=== PATIENT | male | born 1945 | race Hispanic/Latino ===

== ENCOUNTER → 2018-06-12 | Outpatient (CLI) | payer OTHER ==
[~2018-06-12] VITALS: Ht 175.3 cm; Wt 96.2 kg
[~2018-06-12] MED LIST: REGADENOSON 0.4 MG/5 ML PF SYG IVP SCH
== END | disposition home or self-care (01) ==
LOC: SHCH 08:09
PROVIDERS: ATTEND Internal Medicine Cardiovascular Disease
DX: I42.8 Other cardiomyopathies (principal); I48.2 Chronic atrial fibrillation
CPT/HCPCS: 78452; 93017; 96374; A9500 ×2; J2785

== ENCOUNTER 2018-08-01 07:36 | Day surgery (SDC) | payer OTHER ==
[2018-07-30 15:30] LABS: BASOPHILS % (AUTO) 0.6 % (0.0-5.0); EOSINOPHILS % (AUTO) 2.4 % (0.0-8.0); LYMPHOCYTES % (AUTO) 33.2 % (21.0-51.0); MEAN CORPUSCULAR HGB CONC 34.6 g/dL (32.0-36.0); MEAN CORPUSCULAR VOLUME 92.3 fL (79-99); MONOCYTES % (AUTO) 5.5 % (3.0-13.0); NEUTROPHILS % (AUTO) 58.3 % (40.0-77.0); PLATELET COUNT (AUTO) 193 K/uL (130-400); RED BLOOD CELL COUNT(AUTO) 4.44 MIL/uL (4.50-6.20); RED CELL DISTRIBUTION WIDTH 13.7 % (11.0-15.5); WHITE BLOOD COUNT (AUTO) 10.2 K/uL (4.8-10.8)
[2018-07-30 15:31] VITALS: BP 138/65
[2018-07-30 15:39] LABS: CREATININE 1.5 mg/dL (0.5-1.5); POTASSIUM 3.8 mmol/L (3.5-5.1)
[2018-07-30 15:40] LABS: APPEARANCE,URINE Clear (CLEAR); BILIRUBIN,URINE Negative (NEGATIVE); COLOR,URINE Yellow (YELLOW); GLUCOSE, URINE (UA) Negative (NEGATIVE); KETONES,URINE Trace mg/dL (NEGATIVE); LEUKOCYTE ESTERASE ,URINE Moderate (NEGATIVE); NITRATE,URINE Positive (NEGATIVE); OCCULT BLOOD,URINE Trace (NEGATIVE); PH,URINE 5.5 (5.0-8.0); PROTEIN,URINE Negative (NEGATIVE)
[2018-07-30 15:43] LABS: PARTIAL THROMBOPLASTIN TIME 32.5 SEC (26.3-35.5)
[2018-07-30 16:02] LABS: BACTERIA,URINE Moderate /HPF (None Seen); INR 1.09 (0.85-1.15); PROTHROMBIN TIME 11.4 SEC (9.6-11.6)
[2018-07-30 16:03] LABS: SQUAMOUS EPITHELIAL CELL,UR Rare /HPF (0-2)
--- NOTE | 2018-07-31 11:07 | NUR ---
TOBIN FAXED AND REPORTED ABNORMAL BUN/ CREA/ UA TO DR. ROMARIO BRANTLEY. SHE WILL INFORM Effie COVINGTON NP.
--- NOTE | 2018-07-31 13:47 | NUR ---
LABS PER Effie COVINGTON NP PT TO MAINTAIN HYDRATED TODAY AND ENCURAGE FLUIDS. REPEAT BMI IN AM AND COLLECT UA FOR C/S. INFORM DR. DOSS OF NEW BMP RESULTS IN AM.
--- NOTE | 2018-07-31 13:53 | NUR ---
FLUIDS CALLED AND SPOKE TO PTS IN REGARDS TO HYDRATING TODAY AND NOTHING TO EAT OR DRINK PAST MIDNIGHT TONIGHT. VERBALIZED UNDERSTANDING.
[2018-08-01] VITALS (9 sets, daily range): BP systolic 118–138; BP diastolic 60–74
[~2018-08-01] VITALS: Ht 177.8 cm; Wt 96.6 kg
--- NOTE | 2018-08-01 06:45 | NUR ---
ORDERS ROCÍO COVINGTON NP CALLED TO GIVE ORDERS FROM DR. DOSS. PER ROCÍO, HAVE PT COME IN EARLIER AT ABOUT 0800 IF POSSIBLE. UPON ARRIVAL, START NS AT 100 ML/HR UNTIL PT GOES TO PROCEDURE. Addendum: 08/01/18 at 0715 by OSMIN DOSS RN RN PT WAS CALLED AND STATED HE IS ABLE TO COME IN AT 0800.
[~2018-08-01 07:36] MED LIST changes: +AMLO10TA7 PO; +BENA40TA9 PO; +BUDE10.2 IH; +FINA5TAB41 PO; +GLIP10TA9 PO; +HYDR25TA PO; +METF-446 PO; +OMEG-148 PO; -REGADENOSON 0.4 MG/5 ML PF SYG IVP SCH; +RIVA20TA PO; +SIMV20TA6 PO; +SODIUM CHLORIDE 0.9% 500ML 500 ML IV SCH; +TAMS-1 PO; +VITAMIN B12 PO
[2018-08-01] MEDS ORDERED: SODIUM CHLORIDE 0.9% 1000ML 1,000 ML IV ONE (08:22)
[2018-08-01 08:25] LABS: CREATININE 1.2 mg/dL (0.5-1.5); POTASSIUM 3.8 mmol/L (3.5-5.1)
[2018-08-01] MEDS ORDERED: BIVALIRUDIN 250 MG/VIAL IV ONE (12:42)
[2018-08-01] MEDS ORDERED: LIDOCAINE HCL 2% 20ML ONE (12:42)
[2018-08-01] MEDS ORDERED: NITROGLYCERIN 5 MG/ML 10 ML VIAL IV ONE (12:42)
[2018-08-01] MEDS ORDERED: IOHEXOL 350 MG/ML 100ML INFUS..BTL IV ONE (12:43)
[2018-08-01] MEDS ORDERED: IOHEXOL-350 50ML VIAL IV ONE (12:43)
[2018-08-01] MEDS ORDERED: MIDAZOLAM HCL 1 MG/ML 2ML VIAL ONE (13:09)
[2018-08-01] MEDS ORDERED: SODIUM CHLORIDE 0.9% 1000ML 1,000 ML IV SCH (13:41)
[2018-08-01] MEDS ORDERED: GLUCAGON 1MG KIT 1 MG ML IM PRN (13:45)
[2018-08-01] MEDS ORDERED: DEXTROSE 50%-WATER 50 ML DISP.SYRIN IV PRN (13:45)
[2018-08-01] MEDS ORDERED: INSULIN HUMULIN R 100 UNIT/ML 3ML SQ SCH (16:30)
--- NOTE | 2018-08-01 17:30 | NUR ---
DC DC INSTRUCTIONS GIVEN TO PT / PT SPOUSE , INSTRUCTED TO F/U WITH DR. DOSS, TO RESUME XARELTO, TO HOLD METFORMIN FOR 48 HOURS. VERBALIZED UNDERSTANDING. NO PIV NOTED. SITE ASYMPTOMATIC, RIGHT GROIN DRESSING DRY AND INTACT, PT AWAKE AND ALERT IN BED, NO DISTRESS NOTED. DENIES ANY PAIN OR DISCOMFORTS. PT WILL GET DRESS THEN GO HOME ONCE READY
--- NOTE | 2018-08-01 17:42 | NUR ---
DC PT DC HOME VIA WC, NO DISTRESS NOTED. DENIED ANY PAIN OR DISCOMFORTS. ACCOMPANIED BY SPOUSE
== END 2018-08-01 17:42 | disposition home or self-care (01) ==
LOC: DAH 07:36
PROVIDERS: ATTEND Internal Medicine Cardiovascular Disease
DX: I25.10 Atherosclerotic heart disease of native coronary artery without angina pectoris (principal); Z79.01 Long term (current) use of anticoagulants; I48.2 Chronic atrial fibrillation; Z86.73 Personal history of transient ischemic attack (TIA), and cerebral infarction without residual deficits; I10 Essential (primary) hypertension; Z68.31 Body mass index [BMI] 31.0-31.9, adult; E78.5 Hyperlipidemia, unspecified; N40.0 Benign prostatic hyperplasia without lower urinary tract symptoms; J44.9 Chronic obstructive pulmonary disease, unspecified; Z87.891 Personal history of nicotine dependence; E11.59 Type 2 diabetes mellitus with other circulatory complications; I25.5 Ischemic cardiomyopathy; I47.2 Ventricular tachycardia
CPT/HCPCS: 36415 ×2; 71045; 80048 ×2; 81001; 82948 ×3; 85025; 85610; 85730; 87077; 87088; 87186; 93005; 93458; A4606; C1760; C1894; J1644; J2250; J3490 ×2; J7030; Q9965; Q9967 ×2; 99156; 99157; J0583

== ENCOUNTER 2019-06-12 07:28 | Day surgery (SDC) | payer OTHER ==
[~2019-06-12] VITALS: Ht 175.3 cm; Wt 99.8 kg
[~2019-06-12 07:28] MED LIST changes: +APIX5TAB PO; -BUDE10.2 IH; +FLUT1DIS IH; -HYDR25TA PO; +IRON-23 PO; -RIVA20TA PO; +SIMV-43 PO; -SIMV20TA6 PO; +SODIUM CHLORIDE 0.9% 1000ML 1,000 ML IV ONE; -SODIUM CHLORIDE 0.9% 500ML 500 ML IV SCH
[2019-06-12] MEDS ORDERED: PROPOFOL 10 MG/ML 20ML VIAL IV ONE ×2 (09:25)
[2019-06-12] MEDS ORDERED: LIDOCAINE HCL 1% 20 ML VIAL ONE (09:26)
[2019-06-12] MEDS ORDERED: GLYCOPYRROLATE 0.2 MG/ML 5 ML VIAL ONE (09:56)
[2019-06-12] MEDS ORDERED: EPHEDRINE SULFATE 50 MG/ML AMPULE ONE (09:58)
[2019-06-12 10:23] VITALS: BP 143/66
[2019-06-12 10:28] VITALS: BP 130/68
[2019-06-12 10:33] VITALS: BP 137/80
[2019-06-12 10:38] VITALS: BP 135/74
== END 2019-06-12 10:52 | disposition home or self-care (01) ==
LOC: DAH 07:28 → ENDO 07:28
PROVIDERS: ATTEND Internal Medicine Gastroenterology
DX: D50.9 Iron deficiency anemia, unspecified (principal); K63.5 Polyp of colon; K57.30 Diverticulosis of large intestine without perforation or abscess without bleeding; K29.70 Gastritis, unspecified, without bleeding; K22.8 Other specified diseases of esophagus; K55.21 Angiodysplasia of colon with hemorrhage; J45.909 Unspecified asthma, uncomplicated; F17.200 Nicotine dependence, unspecified, uncomplicated; I10 Essential (primary) hypertension; I25.10 Atherosclerotic heart disease of native coronary artery without angina pectoris; E78.5 Hyperlipidemia, unspecified; E11.9 Type 2 diabetes mellitus without complications; I48.91 Unspecified atrial fibrillation; I25.2 Old myocardial infarction; Z86.010 Personal history of colon polyps; Z86.73 Personal history of transient ischemic attack (TIA), and cerebral infarction without residual deficits
CPT/HCPCS: 43239; 45380; 45382; 45385; 82948 ×2; 93005; A4215 ×2; A4221 ×2; A4222 ×2; A4223 ×2; A4606 ×2; A4620 ×2; A4649; A4663 ×2; J2704 ×2; J3490 ×2; J7030 ×2; 45388

== ENCOUNTER 2021-06-15 22:40 | Observation (INO) | payer OTHER ==
[~2021-06-15] VITALS: Ht 175.3 cm; Wt 95.9 kg
[~2021-06-15 22:40] MED LIST changes: +AMLO-258 PO; -AMLO10TA7 PO; -BENA40TA9 PO; +BENA40TA92 PO; +BENZ-39 PO; +CEPH500T PO; -SODIUM CHLORIDE 0.9% 1000ML 1,000 ML IV ONE
[2021-06-15 23:42] LABS: BASOPHILS % (AUTO) 0.7 % (0.0-5.0); EOSINOPHILS % (AUTO) 8.7 % (0.0-8.0); HEMATOCRIT 28.5 % (42-54); LYMPHOCYTES % (AUTO) 26.5 % (21.0-51.0); MEAN CORPUSCULAR HGB CONC 29.5 g/dL (32.0-36.0); MEAN CORPUSCULAR VOLUME 77.9 fL (79-99); MONOCYTES % (AUTO) 7.5 % (3.0-13.0); NEUTROPHILS % (AUTO) 56.3 % (40.0-77.0); PLATELET COUNT (AUTO) 221 K/uL (130-400); RED BLOOD CELL COUNT(AUTO) 3.66 MIL/uL (4.50-6.20); RED CELL DISTRIBUTION WIDTH 18.5 % (11.0-15.5); WHITE BLOOD COUNT (AUTO) 9.8 K/uL (4.8-10.8)
[2021-06-15 23:57] LABS: CREATININE 1.1 mg/dL (0.5-1.5); INR 1.07 (0.85-1.15); POTASSIUM 3.5 mmol/L (3.5-5.1); PROTHROMBIN TIME 11.6 SEC (9.6-11.6)
[2021-06-15 23:58] LABS: PARTIAL THROMBOPLASTIN TIME 28.4 SEC (26.3-35.5)
[2021-06-16 00:01] LABS: ALBUMIN 3.1 g/dL (3.5-5.0); BILIRUBIN,TOTAL 0.2 mg/dL (0.2-1.0); MAGNESIUM 1.8 mg/dL (1.80-2.40); TOTAL PROTEIN, SERUM 5.8 g/dL (6.0-8.3)
[2021-06-16 00:08] LABS: B-TYPE NATRIURETIC PEPTIDE 663 pg/mL (0-100)
[2021-06-16] MEDS ORDERED: ACETAMINOPHEN 325 MG TAB PO PRN (01:00)
[2021-06-16] MEDS: CEFTRIAXONE 1G VIAL IV SCH (01:29)
[2021-06-16] MEDS: DOXYCYCLINE 100MG+NS 250ML 250 ML IV SCH ×2 (01:30→13:45)
[2021-06-16] MEDS ORDERED: HYDROCODONE/ACETAMINOPHEN 5/325 MG TAB PO PRN (02:00)
[2021-06-16] MEDS ORDERED: ALBUTEROL INHALER 90MCG/INH IH PRN (02:00)
[2021-06-16] MEDS ORDERED: PANT40GR PO (02:26)
[2021-06-16 03:57] LABS: APPEARANCE,URINE CLEAR (CLEAR); BILIRUBIN,URINE NEGATIVE (NEGATIVE); COLOR,URINE YELLOW (YELLOW); GLUCOSE, URINE (UA) NEGATIVE (NEGATIVE); KETONES,URINE NEGATIVE (NEGATIVE); LEUKOCYTE ESTERASE ,URINE NEGATIVE (NEGATIVE); NITRATE,URINE NEGATIVE (NEGATIVE); OCCULT BLOOD,URINE NEGATIVE (NEGATIVE); PROTEIN,URINE NEGATIVE (NEGATIVE); UROBILINOGEN,URINE 0.2 mg/dL (0.2-1.0)
[2021-06-16] MEDS ORDERED: LIDOCAINE HCL 2% VISCOUS 15 ML UDCUP PO ONE (04:00)
[2021-06-16] MEDS ORDERED: MAG/ALUM/SIMETH 30 ML UDCUP PO ONE (04:00)
[2021-06-16 04:56] VITALS: BP 119/61
[2021-06-16] MEDS: INSULIN HUMULIN R 100 UNIT/ML 3ML SQ SCH ×4 (07:30→20:13)
[2021-06-16 08:00] VITALS: BP 126/62
[2021-06-16] MEDS ORDERED: BENZONATATE 100 MG CAPSULE PO SCH (09:00)
[2021-06-16] MEDS: FAMOTIDINE 20MG TAB PO SCH (10:28)
[2021-06-16 11:37] VITALS: BP 117/62
[2021-06-16 16:00] VITALS: BP 112/55
[2021-06-16 19:48] VITALS: BP 123/65
[2021-06-16] MEDS ORDERED: BENZONATATE 100 MG CAPSULE PO ONE (20:27)
[2021-06-16] MEDS: BENZONATATE 100 MG CAPSULE PO SCH (21:12)
[2021-06-16] MEDS ORDERED: OXYMETAZOLINE HCL SPRAY 15 ML BOTTLE EN PRN (22:00)
[2021-06-16 23:33] VITALS: BP 114/70
[2021-06-16] MEDS ORDERED: IOHEXOL 350 MG/ML 100ML INFUS..BTL IV ONE (23:43)
[2021-06-16] MEDS ORDERED: SODIUM CHLORIDE 3% FOR INHALATION 4 ML/AMP VIAL.NEB IH ONE (23:53)
[2021-06-17] MEDS: IPRATROPIUM/ALBUTEROL SULFATE 3 ML SOLUTION IH SCH ×3 (00:11→11:10)
[2021-06-17] MEDS: CEFTRIAXONE 1G VIAL IV SCH (01:01)
[2021-06-17] MEDS: DOXYCYCLINE 100MG+NS 250ML 250 ML IV SCH ×2 (01:02→11:44)
[2021-06-17 04:13] LABS: BASOPHILS % (AUTO) 0.7 % (0.0-5.0); EOSINOPHILS % (AUTO) 7.7 % (0.0-8.0); HEMATOCRIT 29.1 % (42-54); LYMPHOCYTES % (AUTO) 28.2 % (21.0-51.0); MEAN CORPUSCULAR HEMOGLOBIN 22.6 pg (27.0-33.0); MEAN CORPUSCULAR HGB CONC 29.6 g/dL (32.0-36.0); MEAN CORPUSCULAR VOLUME 76.4 fL (79-99); NEUTROPHILS % (AUTO) 57.1 % (40.0-77.0); PLATELET COUNT (AUTO) 238 K/uL (130-400); RED BLOOD CELL COUNT(AUTO) 3.81 MIL/uL (4.50-6.20); RED CELL DISTRIBUTION WIDTH 18.4 % (11.0-15.5); WHITE BLOOD COUNT (AUTO) 9.2 K/uL (4.8-10.8)
[2021-06-17 04:16] LABS: RETICULOCYTE % (AUTO) 1.5 % (0.42-2.23)
[2021-06-17] MEDS: BENZONATATE 100 MG CAPSULE PO SCH ×2 (04:30→13:21)
[2021-06-17 04:31] LABS: HEMOGLOBIN A1C 7.1 % (4.0-6.0)
[2021-06-17 04:34] LABS: CREATININE 1.1 mg/dL (0.5-1.5); MAGNESIUM 1.8 mg/dL (1.80-2.40); PHOSPHORUS 3.9 mg/dL (2.5-4.9); POTASSIUM 3.6 mmol/L (3.5-5.1)
[2021-06-17 04:48] VITALS: BP 137/67
[2021-06-17 04:52] LABS: % IRON SATURATION 5.3 % (30-44)
[2021-06-17] MEDS: INSULIN HUMULIN R 100 UNIT/ML 3ML SQ SCH ×3 (06:00→16:06)
[2021-06-17 08:00] VITALS: BP 118/56
[2021-06-17] MEDS ORDERED: VIT B12 PO SCH (09:00)
[2021-06-17] MEDS ORDERED: VIT C PO SCH (09:00)
[2021-06-17] MEDS ORDERED: IRON CARBONYL PO SCH (09:00)
[2021-06-17] MEDS ORDERED: PANTOPRAZOLE 40 MG TAB DR PO SCH (09:00)
[2021-06-17] MEDS ORDERED: CYANOCOBALAMIN (VITAMIN B-12) 1,000 MCG TABLET PO SCH (09:00)
[2021-06-17] MEDS ORDERED: AMLODIPINE 5 MG TAB PO SCH (09:00)
[2021-06-17] MEDS ORDERED: [UNRECOGNIZED DRUG - OTHER] PO SCH (09:00)
[2021-06-17] MEDS ORDERED: SIMVASTATIN 20 MG TABLET PO SCH (09:00)
[2021-06-17] MEDS ORDERED: FINASTERIDE 5 MG TABLET PO SCH (09:00)
[2021-06-17] MEDS: FAMOTIDINE 20MG TAB PO SCH (09:06)
[2021-06-17] MEDS ORDERED: 0.9% NACL 250ML 250 ML ONE (11:42)
[2021-06-17 12:00] VITALS: BP 118/62
[2021-06-17] MEDS ORDERED: POLYETHYLENE GLYCOL 3350 17 GM POWD.PACK PO SCH (12:00)
[2021-06-17 16:00] VITALS: BP 143/74
[2021-06-17] MEDS ORDERED: BENAZEPRIL PO SCH (21:00)
[2021-06-17] MEDS ORDERED: APIXABAN 5 MG TABLET PO SCH (21:00)
[2021-06-18] MEDS ORDERED: IRON SUCROSE COMPLEX 300 MG in 0.9%NACL 50ML 50 ML IV SCH (09:00)
== END 2021-06-17 17:25 | disposition home or self-care (01) ==
LOC: EDH 22:40 → INTOOBSV 06-16 00:43 → EDHIP 06-16 00:43 → 4CH 06-16 04:10 → 4BH 06-16 04:12 → 3AH 06-17 06:41
PROVIDERS: ADMIT Hospitalist; ATTEND Hospitalist
DX: R04.2 Hemoptysis (principal); Z20.822 Contact with and (suspected) exposure to COVID-19; J44.1 Chronic obstructive pulmonary disease with (acute) exacerbation; D50.9 Iron deficiency anemia, unspecified; R79.89 Other specified abnormal findings of blood chemistry; E11.9 Type 2 diabetes mellitus without complications; N40.0 Benign prostatic hyperplasia without lower urinary tract symptoms; E78.00 Pure hypercholesterolemia, unspecified; I11.0 Hypertensive heart disease with heart failure; I50.9 Heart failure, unspecified; I48.91 Unspecified atrial fibrillation; E78.5 Hyperlipidemia, unspecified; I25.10 Atherosclerotic heart disease of native coronary artery without angina pectoris; F17.210 Nicotine dependence, cigarettes, uncomplicated; Z79.899 Other long term (current) drug therapy; Z79.01 Long term (current) use of anticoagulants; Z86.73 Personal history of transient ischemic attack (TIA), and cerebral infarction without residual deficits
CPT/HCPCS: 36415 ×3; 70488; 71045; 71270; 80048; 80053; 81003; 82550; 82607; 82728; 82948 ×7; 83036; 83735 ×2; 83880; 84100; 84484; 85025 ×2; 85610; 85730; 86480; 86850; 86900; 86901; 87040 ×2; 87071; 87077; 87186; 87205; 87635; 93005; 94640 ×3; 94664; 96365; 96366 ×2; 96372 ×2; 96375; 96376; 99285; G0378 ×3; J0696 ×2; J1815 ×2; J3490 ×4; J7050; Q9967; J1756

== ENCOUNTER → 2021-10-26 | Outpatient (CLI) | payer OTHER ==
[~2021-10-26] MED LIST changes: -BENZ-39 PO; -CEPH500T PO; +PANT40GR PO
[2021-10-26 12:36] LABS: CREATININE 1.6 mg/dL (0.5-1.5); POTASSIUM 3.9 mmol/L (3.5-5.1)
== END | disposition home or self-care (01) ==
LOC: LAB 08:07
PROVIDERS: ATTEND Internal Medicine Cardiovascular Disease
DX: I50.32 Chronic diastolic (congestive) heart failure (principal)
CPT/HCPCS: 36415; 80048

== ENCOUNTER → 2021-10-29 | Outpatient (CLI) | payer OTHER | END | disposition home or self-care (01) | LOC: LAB 08:15 | PROVIDERS: ATTEND Internal Medicine Cardiovascular Disease | DX: I48.20 Chronic atrial fibrillation, unspecified (principal); I11.0 Hypertensive heart disease with heart failure; I50.32 Chronic diastolic (congestive) heart failure; J84.10 Pulmonary fibrosis, unspecified | CPT/HCPCS: 36415; 83880 ==

== ENCOUNTER → 2021-12-27 | Outpatient (CLI) | payer OTHER ==
[2021-12-27 13:04] LABS: CREATININE 1.8 mg/dL (0.5-1.5); POTASSIUM 3.8 mmol/L (3.5-5.1)
== END | disposition home or self-care (01) ==
LOC: LAB 08:32
PROVIDERS: ATTEND Internal Medicine Cardiovascular Disease
DX: I50.33 Acute on chronic diastolic (congestive) heart failure (principal); I48.0 Paroxysmal atrial fibrillation
CPT/HCPCS: 36415; 80048; 83880

== ENCOUNTER → 2022-01-17 | Outpatient (CLI) | payer OTHER ==
[2022-01-17 12:39] LABS: CREATININE 1.6 mg/dL (0.5-1.5); POTASSIUM 3.8 mmol/L (3.5-5.1)
== END | disposition home or self-care (01) ==
LOC: LAB 10:51
PROVIDERS: ATTEND Internal Medicine Cardiovascular Disease
DX: I50.22 Chronic systolic (congestive) heart failure (principal)
CPT/HCPCS: 36415; 80048; 83880

== ENCOUNTER → 2022-01-26 | Outpatient (CLI) | payer OTHER ==
[2022-01-26 12:44] LABS: CREATININE 1.3 mg/dL (0.5-1.5); POTASSIUM 3.9 mmol/L (3.5-5.1)
== END | disposition home or self-care (01) ==
LOC: LAB 08:32
PROVIDERS: ATTEND Internal Medicine Cardiovascular Disease
DX: I25.10 Atherosclerotic heart disease of native coronary artery without angina pectoris (principal)
CPT/HCPCS: 36415; 80048; 83880

== ENCOUNTER → 2022-03-28 | Outpatient (CLI) | payer OTHER ==
[2022-03-28 12:02] LABS: CREATININE 1.5 mg/dL (0.5-1.5); POTASSIUM 3.7 mmol/L (3.5-5.1)
== END | disposition home or self-care (01) ==
LOC: LAB 09:29
PROVIDERS: ATTEND Internal Medicine Cardiovascular Disease
DX: I50.22 Chronic systolic (congestive) heart failure (principal)
CPT/HCPCS: 36415; 80048; 83880

== ENCOUNTER 2022-05-30 22:24 | Inpatient (IN) | payer OTHER ==
[~2022-05-30] VITALS: Ht 175.3 cm; Wt 89.6 kg
[2022-05-30 23:30] LABS: BASOPHILS % (AUTO) 0.9 % (0.0-5.0); EOSINOPHILS % (AUTO) 1.5 % (0.0-8.0); HEMATOCRIT 32.4 % (42-54); LYMPHOCYTES % (AUTO) 23.8 % (21.0-51.0); MEAN CORPUSCULAR HEMOGLOBIN 22.7 pg (27.0-33.0); MEAN CORPUSCULAR HGB CONC 27.8 g/dL (32.0-36.0); MEAN CORPUSCULAR VOLUME 81.6 fL (79-99); MONOCYTES % (AUTO) 9.3 % (3.0-13.0); NEUTROPHILS % (AUTO) 64.1 % (40.0-77.0); NUCLEATED RED BLOOD CELLS 0.4 % (0.0-0.19); PLATELET COUNT (AUTO) 172 K/uL (130-400); RED BLOOD CELL COUNT(AUTO) 3.97 MIL/uL (4.50-6.20); RED CELL DISTRIBUTION WIDTH 32.3 % (11.0-15.5)
[2022-05-30 23:32] LABS: APPEARANCE,URINE CLEAR (CLEAR); BILIRUBIN,URINE NEGATIVE (NEGATIVE); COLOR,URINE LIGHT-YELLOW (YELLOW); GLUCOSE, URINE (UA) NEGATIVE (NEGATIVE); KETONES,URINE NEGATIVE (NEGATIVE); LEUKOCYTE ESTERASE ,URINE NEGATIVE Leu/uL (NEGATIVE); NITRATE,URINE NEGATIVE (NEGATIVE); OCCULT BLOOD,URINE NEGATIVE (NEGATIVE); PROTEIN,URINE NEGATIVE (NEGATIVE); UROBILINOGEN,URINE 0.2 mg/dL (0.2-1.0)
[2022-05-30 23:46] LABS: CREATININE 1.5 mg/dL (0.5-1.5); POTASSIUM 4.7 mmol/L (3.5-5.1)
[2022-05-30 23:50] LABS: ALBUMIN 2.9 g/dL (3.5-5.0); TOTAL PROTEIN, SERUM 6.8 g/dL (6.0-8.3)
[2022-05-31 00:22] LABS: B-TYPE NATRIURETIC PEPTIDE 2960 pg/mL (0-100)
[2022-05-31] MEDS ORDERED: FUROSEMIDE 40MG VIAL IV ONE (03:00)
[2022-05-31] MEDS: FUROSEMIDE 20MG VIAL IV SCH ×2 (03:30→15:52)
[2022-05-31] MEDS ORDERED: ACETAMINOPHEN 325 MG TAB PO PRN ×2 (03:30)
[2022-05-31] MEDS ORDERED: LACTULOSE 20 GM/30 ML UDCUP PO PRN (03:30)
[2022-05-31] MEDS ORDERED: ONDANSETRON 4MG INJ IV PRN (03:30)
[2022-05-31] MEDS: FAMOTIDINE 20MG TAB PO SCH ×2 (08:38→21:01)
[2022-05-31 12:00] VITALS: BP 126/51
[2022-05-31] MEDS ORDERED: LISI20TA24 PO (12:08)
[2022-05-31] MEDS ORDERED: ZOLP5TAB2 PO (12:08)
[2022-05-31] MEDS ORDERED: SPIR25TA6 PO (12:08)
[2022-05-31] MEDS ORDERED: METO-408 PO (12:08)
[2022-05-31] MEDS ORDERED: ASCO500V11 IJ (12:08)
[2022-05-31] MEDS ORDERED: ALBU18HF7 IH (12:08)
[2022-05-31] MEDS ORDERED: SIMV40TA59 PO (12:08)
[2022-05-31] MEDS ORDERED: TORS20TA4 PO ×2 (12:08)
[2022-05-31] MEDS ORDERED: FLUT1BLS12 IH (12:08)
[2022-05-31] MEDS ORDERED: APIX5TAB PO (12:08)
[2022-05-31] MEDS ORDERED: FERR-72 PO (12:13)
[2022-05-31] MEDS ORDERED: MULT-1278 PO (12:13)
[2022-05-31 16:00] VITALS: BP 118/40
[2022-05-31 20:25] VITALS: BP 102/56
[2022-05-31] MEDS: APIXABAN 5 MG TABLET PO SCH (21:01)
[2022-06-01 00:34] VITALS: BP 114/60
[2022-06-01] MEDS: FUROSEMIDE 20MG VIAL IV SCH (03:12)
[2022-06-01 04:37] VITALS: BP 113/71
[2022-06-01 05:39] LABS: EOSINOPHILS % (AUTO) 1.1 % (0.0-8.0); HEMATOCRIT 35.2 % (42-54); LYMPHOCYTES % (AUTO) 25.4 % (21.0-51.0); MEAN CORPUSCULAR HEMOGLOBIN 23.2 pg (27.0-33.0); MEAN CORPUSCULAR HGB CONC 28.7 g/dL (32.0-36.0); MEAN CORPUSCULAR VOLUME 80.7 fL (79-99); MONOCYTES % (AUTO) 8.7 % (3.0-13.0); NEUTROPHILS % (AUTO) 63.6 % (40.0-77.0); PLATELET COUNT (AUTO) 226 K/uL (130-400); RED BLOOD CELL COUNT(AUTO) 4.36 MIL/uL (4.50-6.20); RED CELL DISTRIBUTION WIDTH 33.5 % (11.0-15.5); WHITE BLOOD COUNT (AUTO) 6.1 K/uL (4.8-10.8)
[2022-06-01 06:07] LABS: % IRON SATURATION 8.2 % (30-44)
[2022-06-01 06:17] LABS: CARBON DIOXIDE 29 mmol/L (21-32); CHLORIDE 103 mmol/L (101-111); CREATININE 1.6 mg/dL (0.5-1.5); GLOMERULAR FILTR. RATE CALC 45 mL/min (>60); GLUCOSE,RANDOM 142 mg/dL (70-105); PHOSPHORUS 3.8 mg/dL (2.5-4.9); POTASSIUM 4.2 mmol/L (3.5-5.1); SODIUM SERUM 139 mmol/L (136-145); THYROID STIMULATING HORMONE 1.44 uIU/mL (0.36-3.74); UREA NITROGEN, BLOOD 23 mg/dL (7-18)
[2022-06-01 06:58] LABS: B-TYPE NATRIURETIC PEPTIDE 2950 pg/mL (0-100)
[2022-06-01 07:25] VITALS: BP 112/61
[2022-06-01] MEDS: FAMOTIDINE 20MG TAB PO SCH (08:39)
[2022-06-01] MEDS: APIXABAN 5 MG TABLET PO SCH (08:39)
[2022-06-01] MEDS ORDERED: SPIRONOLACTONE 25 MG TAB PO SCH (09:00)
[2022-06-01] MEDS ORDERED: FINASTERIDE 5 MG TABLET PO SCH (09:00)
[2022-06-01] MEDS ORDERED: METOPROLOL SUCCINATE 25 MG TAB.SR.24H PO SCH (09:00)
[2022-06-01] MEDS ORDERED: ASCORBIC ACID 500 MG IJ SCH (09:00)
[2022-06-01] MEDS ORDERED: CYANOCOBALAMIN (VITAMIN B-12) 1,000 MCG TABLET PO SCH (09:00)
[2022-06-01] MEDS ORDERED: TAMSULOSIN HCL 0.4 MG CAP.ER.24H PO SCH (09:00)
[2022-06-01 11:35] VITALS: BP 97/58
[2022-06-01] MEDS ORDERED: LISI5TAB21 PO (14:21)
[2022-06-01] MEDS ORDERED: APIX5TAB PO (14:21)
[2022-06-01] MEDS ORDERED: EMPA10TA PO (14:21)
[2022-06-01] MEDS ORDERED: SPIR25TA6 PO (14:21)
[2022-06-01] MEDS ORDERED: IRON SUCROSE COMPLEX 500 MG in 0.9%NACL 50ML 50 ML IV SCH (14:30)
[2022-06-01 16:58] VITALS: BP 110/54
== END 2022-06-01 18:46 | disposition home or self-care (01) | DRG 291 ==
LOC: EDH 22:24 → EDHIP 05-31 03:01 → 3DH 05-31 08:53
PROVIDERS: ADMIT Hospitalist; ATTEND Hospitalist
DX: I11.0 Hypertensive heart disease with heart failure (principal); I50.23 Acute on chronic systolic (congestive) heart failure; I48.20 Chronic atrial fibrillation, unspecified; E11.9 Type 2 diabetes mellitus without complications; E78.00 Pure hypercholesterolemia, unspecified; F17.210 Nicotine dependence, cigarettes, uncomplicated; J44.9 Chronic obstructive pulmonary disease, unspecified; N40.0 Benign prostatic hyperplasia without lower urinary tract symptoms; R29.6 Repeated falls; Z79.01 Long term (current) use of anticoagulants; Z82.49 Family history of ischemic heart disease and other diseases of the circulatory system; Z83.3 Family history of diabetes mellitus; Z86.73 Personal history of transient ischemic attack (TIA), and cerebral infarction without residual deficits
CPT/HCPCS: 36415; 70450; 71045; 80048; 80053; 81003; 82270; 82607; 82728; 82746; 82948; 83540; 83550; 83735; 83880; 84100; 84443; 84484; 85025; 85045; 85651; 86140; 87635; 87804; 93005; C9803; G0378; J1756; J1940

== ENCOUNTER → 2024-03-11 | Outpatient (CLI) | payer OTHER ==
[~2024-03-11] MED LIST changes: +ALBU18HF7 IH; -AMLO-258 PO; +ASCO500V11 IJ; -BENA40TA92 PO; +EMPA10TA PO; +FERR-72 PO; +FLUT1BLS12 IH; -FLUT1DIS IH; -GLIP10TA9 PO; -IRON-23 PO; +LISI5TAB21 PO; -METF-446 PO; +METO-408 PO; +MULT-1278 PO; -OMEG-148 PO; -SIMV-43 PO; +SIMV40TA59 PO; +SPIR25TA6 PO; +TORS20TA4 PO; +ZOLP5TAB2 PO
--- NOTE | 2024-03-11 15:27 | HMCIMG ---
CT CHEST W/O CONTRAST REASON: Hemoptysis, Wheezing COMPARISON: 11/10/2021 TECHNIQUE: Multiple sequential axial images of the chest were obtained from the thoracic inlet through the upper pole of the kidneys without intravenous contrast administration. FINDINGS: Lungs are now clear. There are no focal masses or infiltrates. There is no pleural effusion. There is no bronchiectasis or cavitation. There is mild cardiomegaly with no pulmonary vascular congestion. There is no hilar or mediastinal lymphadenopathy. Chest wall structures appear normal as do visualized upper abdominal structures. IMPRESSION: 1. Mild cardiomegaly without pulmonary vascular congestion. 2. Otherwise unremarkable noncontrast CT chest. CT was performed with one or more following dose reduction techniques: automated exposure control, adjustment of the mA and kv according to patient's size, or use of a iterative reconstruction technique.
== END | disposition home or self-care (01) ==
LOC: RAH 13:50
PROVIDERS: ATTEND Internal Medicine
DX: I11.9 Hypertensive heart disease without heart failure (principal); R06.02 Shortness of breath; R04.2 Hemoptysis; E08.8 Diabetes mellitus due to underlying condition with unspecified complications; R06.2 Wheezing
CPT/HCPCS: 71250